=== PATIENT | male | born 1985 | race Two or more races ===

== ENCOUNTER 2024-06-04 10:09 | Outpatient (RCR) | payer BC, SELFPAY ==
[2024-06-03 16:38] LABS: Basophils # (Auto) 0.1 Thou/mm3 (0.0-0.2); Basophils % (Auto) 1 % (0-2.5); Eosinophils # (Auto) 0.1 Thou/mm3 (0.0-0.5); Eosinophils % (Auto) 1 % (0-10); Hematocrit 43.3 % (41.0-53.0); Hemoglobin 14.8 g/dL (13.5-16.0); Immature Granulocytes % (Auto) 0 % (0-0); Immature Granulocytes Auto 0.02 Thou/mm3 (0.00-0.00); Lymphocytes # (Auto) 2.1 Thou/mm3 (1.0-4.8); Lymphocytes % (Auto) 21 % (10-50); Mean Corpuscular HGB Conc 34.2 g/dl (31.0-37.0); Mean Corpuscular Hemoglobin 29.1 pg (25.0-35.0); Mean Corpuscular Volume 85 fL (80-100); Monocytes # (Auto) 0.5 Thou/mm3 (0.0-0.8); Monocytes % (Auto) 5 % (0-12); Neutrophils # (Auto) 7.1 Thou/mm3 (1.8-7.7); Neutrophils % (Auto) 72 % (37-80); Nucleated Red Blood Cell % 0 /100 WBC (0); Platelet Count 244 Thou/mm3 (140-440); RDW Standard Deviation 38.6 fL (35.1-43.9); Red Blood Count 5.08 Miln/mm3 (4.50-5.90); White Blood Count 9.8 Thou/mm3 (3.8-10.6)
[2024-06-03 17:28] LABS: Alanine Aminotransferase 40 U/L (10-49); Albumin, Serum 4.8 gm/dL (3.5-5.0); Albumin/Globulin Ratio 1.9 (1.2-2.2); Alkaline Phosphatase 97 U/L (46-116); Anion Gap 8 (7-16); Aspartate Amino Transferase 18 U/L (0-34); BUN/Creatinine Ratio 13 Ratio (12-20); Bilirubin,Total 0.6 mg/dL (0.3-1.2); Blood Urea Nitrogen 13 mg/dL (9-23); Calcium 9.6 mg/dL (8.3-10.6); Calcium (Corrected) 9.6 mg/dL (8.5-10.1); Chloride 104 mMol/L (98-107); Globulin 2.5 gm/dL (2.3-3.5); Glucose 150 mg/dL (74-106); Osmolality,Calculated 276 (275-295); Potassium 3.8 mMol/L (3.4-5.1); Sodium 137 mMol/L (136-145); Total Protein 7.3 gm/dL (5.7-8.2); eGFR > 60 See Note
== END 2024-06-29 23:59 | disposition home or self-care (01) ==
LOC: SCTC 10:09
PROVIDERS: PCP Family Medicine; Referring Provider Family Medicine; Visit Provider Internal Medicine Hematology & Oncology
DX: Z08 Encounter for follow-up examination after completed treatment for malignant neoplasm (principal); Z85.47 Personal history of malignant neoplasm of testis; Z90.79 Acquired absence of other genital organ(s)
CPT/HCPCS: 36591; 80053; 82105; 85025; 99212; A4216; J1642; G0463

== ENCOUNTER 2024-09-04 15:17 | Outpatient (RCR) | payer BC, SELFPAY | END 2024-09-27 23:59 | disposition home or self-care (01) | LOC: SCTC 15:17 | PROVIDERS: PCP Family Medicine; Referring Provider Family Medicine; Visit Provider Internal Medicine Hematology & Oncology | DX: Z45.2 Encounter for adjustment and management of vascular access device (principal); Z85.47 Personal history of malignant neoplasm of testis | CPT/HCPCS: 96523; A4216; J1642 ==

== ENCOUNTER 2024-12-02 10:26 | Outpatient (RCR) | payer BC, SELFPAY ==
[2024-11-28 16:02] LABS: Basophils # (Auto) 0.1 Thou/mm3 (0.0-0.2); Basophils % (Auto) 1 % (0-2.5); Eosinophils # (Auto) 0.1 Thou/mm3 (0.0-0.5); Eosinophils % (Auto) 1 % (0-10); Hematocrit 44.4 % (41.0-53.0); Hemoglobin 15.4 g/dL (13.5-16.0); Immature Granulocytes % (Auto) 0 % (0-0); Immature Granulocytes Auto 0.03 Thou/mm3 (0.00-0.00); Lymphocytes # (Auto) 2.1 Thou/mm3 (1.0-4.8); Lymphocytes % (Auto) 18 % (10-50); Mean Corpuscular HGB Conc 34.7 g/dl (31.0-37.0); Mean Corpuscular Hemoglobin 29.4 pg (25.0-35.0); Mean Corpuscular Volume 85 fL (80-100); Monocytes # (Auto) 0.5 Thou/mm3 (0.0-0.8); Monocytes % (Auto) 4 % (0-12); Neutrophils # (Auto) 8.6 Thou/mm3 (1.8-7.7); Neutrophils % (Auto) 76 % (37-80); Nucleated Red Blood Cell % 0 /100 WBC (0); Platelet Count 224 Thou/mm3 (140-440); RDW Standard Deviation 38.3 fL (35.1-43.9); Red Blood Count 5.23 Miln/mm3 (4.50-5.90); White Blood Count 11.3 Thou/mm3 (3.8-10.6)
[2024-11-28 17:01] LABS: Alanine Aminotransferase 38 U/L (10-49); Albumin, Serum 4.3 gm/dL (3.5-5.0); Albumin/Globulin Ratio 1.8 (1.2-2.2); Alkaline Phosphatase 101 U/L (46-116); Anion Gap 13 (7-16); Aspartate Amino Transferase 20 U/L (0-34); BUN/Creatinine Ratio 15 Ratio (12-20); Beta HCG,Quantitative < 1 mIU/mL; Bilirubin,Total 0.6 mg/dL (0.3-1.2); Blood Urea Nitrogen 16 mg/dL (9-23); Calcium 8.9 mg/dL (8.3-10.6); Calcium (Corrected) 8.9 mg/dL (8.5-10.1); Carbon Dioxide 22.9 mMol/L (20.0-31.0); Chloride 105 mMol/L (98-107); Creatinine (Component) 1.1 mg/dL (0.6-1.3); Globulin 2.4 gm/dL (2.3-3.5); Glucose 217 mg/dL (74-106); LDH (Lactate Dehydrogenase) 155 U/L (120-246); Osmolality,Calculated 289 (275-295); Potassium 3.5 mMol/L (3.4-5.1); Sodium 141 mMol/L (136-145); Total Protein 6.7 gm/dL (5.7-8.2); eGFR > 60 See Note
--- NOTE | 2024-12-02 15:52 | CTCFLWUP_ITS ---
Patient: MJ JURADO : 1985 Page 2 of 2 FOLLOW UP NOTE DATE OF SERVICE: 12/02/2024 NAME: MJ JURADO ACCOUNT: [id number] : 1985 AGE: 39 INTERVAL HISTORY: Visit summary Mj, a male with right testicular cancer history (diagnosed 2007, recurrence 2019), presented for follow-up. Past treatment included chemotherapy and lymph node removal in 2019. Current labs showed normal tumor markers (AFP beta-hCG and LDH Chief Complaint Follow-up for right testicular cancer History of Present Illness Mj Jurado is a male patient with a history of right testicular cancer, initially diagnosed in 2007 with recurrence in 2019, presenting for follow-up. The patient underwent chemotherapy and lymph node removal for his recurrent cancer in 2019. Mr. Jurado reports no new symptoms or concerns since his last visit. He appears to be adhering to his follow-up schedule, having completed scans in March of the previous year. The patient's overall health status seems stable, with no reported changes in physical, mental, or psychosocial factors. Medical History - Right testicular cancer, recurrence in 2019 - Right testicular cancer, initially diagnosed in 2007 Surgical History - Lymph node removal in 2019 for recurrent testicular cancer Social History - Language: Patient expresses difficulty learning [place] and understanding medical terminology in a non-[place] language Laboratory, Imaging, and Diagnostic Test Results - Date: 12/02/2024 (assumed current date) - Hemoglobin: 15.4 g/dL - White blood cell count: 11.3 (high) - LDH: 155 - Beta-hCG: <1 - AFP: <3.3 - Previous results: - AFP: low (date not specified) - Beta-hCG: <0 (date not specified) ONCOLOGY HISTORY: DIAGNOSIS: 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 Status post 4 cycles of BEP chemotherapy (07/15/2019) open right pelvic lymphadenectomy (10/09/2019). REASON FOR TODAY?S VISIT: This is office follow-up visit. Mr. Jurado is here at [facility]. He is clinically doing very well. Denies any complaints. Denies any cough, chest pain, abdominal pain or leg cramps. Ambulating well. Working full-time. Has good appetite and good energy levels. Patient states that he feels normal. Malignant neoplasm of descended right testis [ICD10] C62.11 DATE OF DIAGNOSIS: STAGE/TNM: TREATMENT HISTORY: Care?Plan Start?Date Cycle Day Intent Bleomycin?30?U,?Etoposide?100?mg/m*2,?CISplatin?20?mg/m*2 05/13/2019 1 21 Curative?(adjuvant) HISTORY OF PRESENT ILLNESS: Mj Bishop is a 39-year-old ENG speaking male with following oncology history. 08/02/2007: Right orchiectomy?embryonal carcinoma limited to the testes and epididymis. No evidence of lymphovascular space involvement by tumor. Intratubular germ cell neoplasia identified. Staged as a PT 1 disease. 05/06/2013: CT scan of the chest abdomen and pelvis with contrast?no mass or pathological lymphadenopathy. Incidental small right paratracheal and inguinal lymph nodes possibly reactive were noted. 07/15/2013: Ultrasound of the testes showed solitary left testicle. Diffuse calcific speckling throughout the testicle and increased blood flow suggest that this is tumor. 03/13/2019: LDH 458 (121?224) beta-hCG less than 1. AFP 12.2 (0?8.3) 03/20/2019: LDH 515, AFP 12.7, beta-hCG less than 2. 04/04/2019: Ultrasound of the testes?In the right scrotal sac, according to the technologists and demonstrated is solid mass 2.2 x 1.5 x 2 cm Left testicle 2.1 x 1.4 x 1.9 cm. Epididymis 7 mm. Left testicular microlithiasis Pedunculated masses anterior to the left testicle 1.0 x 1.0 cm, 0.7 x 0.7 cm 04/11/2019: CT scan of the chest abdomen and pelvis with IV contrast?Large soft tissue tumor mass in the right pelvis, 10.7 x 10.6 x 6.4 cm, most consistent with massive right iliac adenopathy. 04/17/2019: Echocardiogram?CONCLUSIONS Normal left ventricular size. Approximate ejection fraction is 50-55%. mild mitral and trace to mild tricuspid regurgitation noted. Mitral valve thickened 04/18/2019: Pulmonary function tests:Conclusions: Minimal airway obstruction is present. Pulmonary Function Diagnosis: Minimal Obstructive Airways Disease 04/19/2019: CT-guided biopsy of the pelvic mass?pathology showed embryonal carcinoma. Patient also had Chemo-Port insertion. 04/25/2019: Repeat ultrasound of the testes?absent right testicle.Right scrotal wall vascular mass 1.5 x 1.5 cm Left testicular microlithiasis. No testicular mass. Left scrotal wall masses 1.1 x 1.0 cm, 1.1 x 0.6 cm Differential for the scrotal wall masses would include scrotal wall soft tissue tumors, infectious/inflammatory masses 05/13/2019: AFP 33.8, beta-hCG less than 2 05/27/2019: AFP 17.10, beta-hCG less than 2 06/11/2019: AFP 8.30 06/17/2019: AFP 6.4. 06/24/2019: AFP 5.3. 07/10/2019: AFP 8.0. (Normal is less than 8.10) 05/13/2019?07/15/2019: Patient received 4 cycles of BEP chemotherapy. 08/07/2019: AFP 4.5 08/19/2019: CT scan of the chest abdomen and pelvis with IV contrast?IMPRESSION: Significant treatment response compared to PET/CT 04/26/2019, CT chest abdomen pelvis April 11, 2019 Right pelvic lymph node mass measures 7.1 x 4.6 x 6.6 cm on the current study compared to 10.7 x 4 x 10.[address] chest abdomen pelvis 04/11/2019 Recommend repeat PET/CT fusion study follow-up 10/09/2019: Patient had open right pelvic lymphadenectomy at [facility]. Multiple lymph nodes were removed. They were all negative for residual malignancy. 09/18/2019: Beta-hCG less than 2, alpha-fetoprotein 3.4. 11/04/2019: Beta-hCG less than 1, alpha-fetoprotein 4.1. 01/06/2020: Beta-hCG less than 1, alpha-fetoprotein 3.10. 03/06/2020: CT scan of the abdomen and pelvis with IV contrast? 09/08/2020: AFP 5.8, beta-hCG less than 1. 08/04/2022: CT scan of the abdomen and pelvis with IV contrast is negative for metastatic disease. Chest x-ray PA and lateral views did not show any active disease. Beta-hCG less than 1, AFP 5.9. 02/01/2023: CT scan of the abdomen and pelvis with IV contrast 10/06/2023: AFP 3.9, beta-hCG negative. LDH 133. 02/07/2024: AFP 3.0, beta-hCG less than 0. OTHER MEDICAL HISTORY/CONDITIONS: FAMILY HISTORY: SOCIAL HISTORY: MEDICATIONS: 1. atorvastatin - 10 mg 1 tab Daily 2. metformin - 500 mg Twice a Day 3. Ozempic - 1 mg/dose (2 mg/1.5 mL) 1 Weekly 4. Ozempic - 2 mg/dose (8 mg/3 mL) 1 Weekly Medications Last Reconciled by Mirella Mahoney MA on 12/02/2024 ALLERGIES: No Known Drug Allergies REVIEW OF SYSTEMS: A complete 14-point review of systems was performed and is negative except as noted in interval history. PHYSICAL EXAMINATION: VITAL SIGNS: Temperature?98, B/P?147/94, Oxygen?Saturation?98% Weight?212?lbs (Change?since?11/28/24:?0.8?lbs) PAIN: 0 - No pain ECOG Performance Status: 0 - Asymptomatic and fully active GENERAL APPEARANCE: Appears well, in no apparent distress, appropriately interactive. HEENT: Normocephalic, no temporal wasting, normal conjunctiva, no scleral icterus, normal hearing, lips without lesions, neck normal range of motion. CARDIOVASCULAR: Not assessed. PULMONARY: Normal respiratory effort, no respiratory distress or use of accessory muscles, speaking in full sentences, no tachypnea. EXTREMITIES: No pedal edema or cyanosis. SKIN: Normal skin appearance. NEUROLOGIC: Alert and oriented x4. PSHYCHIATRIC: Appropriate affect, mood normal, behavior normal, intact thought and speech. LABORATORY DATA: I have personally reviewed and interpreted each of the patient?s relevant lab tests, abnormal findings are below: Date 06/03/24 11/28/24 ??WHITE?BLOOD?COUNT?(Thou/mm3) 9.8 11.3?H ??RED?BLOOD?COUNT?(Miln/mm3) 5.08 5.23 ??HEMOGLOBIN?(gm/dl) 14.8 15.4 ??HEMATOCRIT?(%) 43.3 44.4 ??PLATELET?COUNT?(Thou/mm3) 244 224 ??NEUTROPHILS?%,?AUTO?(%) 72 76 ??LYMPH?%,?AUTO?(%) 21 18 ??NEUTROPHILS,?AUTO?(Thou/mm3) 7.1 8.6?H ??GLUCOSE,RANDOM?(mg/dL) ? 217?H ??BLOOD?UREA?NITROGEN?(mg/dL) ? 16 ??CREATININE?(mg/dL) ? 1.10 ??SODIUM?(mmol/L) ? 141 ??POTASSIUM?(mmol/L) ? 3.5 ??CHLORIDE?(mmol/L) ? 105 ??CrCl?(CandG)?(ml/min) ? 99.72 ??AST/SGOT?(Unit/L) ? 20 ??ALT/SGPT?(Unit/L) ? 38 ??ALKALINE?PHOSPHATASE?(Unit/L) ? 101 ??BILIRUBIN,?TOTAL?(mg/dL) ? 0.6 ??PROTEIN?TOTAL?(gm/dl) ? 6.7 ??ALBUMIN,?SERUM?(gm/dl) ? 4.3 ??GLOBULIN?(gm/dl) ? 2.4 ??ALBUMIN/GLOBULIN?RATIO ? 1.8 ??CALCIUM,?SERUM?(mg/dL) ? 8.9 ??CALCIUM?SERUM?(CORRECTED)?(mg/dL) ? 8.9 ??LDH,?TOTAL?(Unit/L) ? 155 ASSESSMENT/PLAN: Stage IIc S2 embryonal carcinoma. Status post 4 cycles of BEP chemotherapy. Followed by open right pelvic lymphadenectomy as described above History of embryonal carcinoma of the right testes status post right orchiectomy as described above. Mj Jurado, male patient with a history of right testicular cancer diagnosed in 2008 with recurrence in 2019, presenting for follow-up. Right testicular cancer, status post treatment Assessment: Patient with a history of right testicular cancer initially diagnosed in 2007, with recurrence in 2019. He underwent chemotherapy and lymph node removal for the recurrence. Current laboratory results show normal tumor markers: AFP < 3.3, beta-hCG < 1, and LDH 155. Complete blood count shows slightly elevated WBC at 11.3, but hemoglobin is within normal range at 15.4. Last imaging studies were performed in March 2024, with no mention of concerning findings. Plan: - Order imaging studies for March 2025 - Order laboratory tests (AFP, beta-hCG, LDH) to be completed before the imaging studies in March 2025 - Patient to drink plenty of water before the imaging studies - Follow-up appointment scheduled in 6 months, after completion of imaging and laboratory tests ORDERS: Order # Description [id number] CT Scan + Chest + Abdomen and Pelvis + With Contrast [id number] Comprehensive Metabolic Panel - 12 + CBC with Auto Diff + AFP + bHCG - Quant (TM) + Uric Acid, Serum [id number] Lactate Dehydrogenase (LDH) [id number] CT Scan + Chest + Abdomen and Pelvis + With W/O Contrast [id number] MD Follow Up 6 Month RETURN TO CLINIC: 6 months BILLING AND COMPLIANCE: I reviewed external records from providers outside my specialty as summarized above. I spent a total of 50 minutes on this patient?s care on the day of their visit excluding time spent related to any billed procedures. This time includes time spent with the patient as well as time spent documenting in the medical record, reviewing patients records and tests, obtaining history, placing orders, communicating with other healthcare professionals, counseling the patient, family or caregiver, and/or care coordination for the diagnoses above. Electronically Signed by: Ivan Holloway MD T: 3:49 PM CC: Kala?Anette? PCP: Bernard Leija Referring: Bernard Leija This document was completed utilizing speech recognition software. Grammatical errors, random word insertions, pronoun errors, and incomplete sentences are an occasional consequence of this system due to software limitations, ambient noise, and hardware issues. Any formal questions or concerns about the content, text or information contained within the body of this dictation should be directly addressed to the provider for clarification.
== END 2024-12-28 23:59 | disposition home or self-care (01) ==
LOC: SCTC 10:26
PROVIDERS: PCP Family Medicine; Referring Provider Family Medicine; Visit Provider Internal Medicine Hematology & Oncology
DX: Z08 Encounter for follow-up examination after completed treatment for malignant neoplasm (principal); Z85.47 Personal history of malignant neoplasm of testis; Z90.79 Acquired absence of other genital organ(s); Z92.21 Personal history of antineoplastic chemotherapy
CPT/HCPCS: 36591; 80053; 82105; 83615; 84702; 85025; 99212; A4216; J1642; G0463

== ENCOUNTER → 2025-02-05 | Outpatient (BNVA) | payer BC, SELFPAY | END | disposition home or self-care (01) | PROVIDERS: PCP Family Medicine; Referring Provider Family Medicine; Visit Provider Student in an Organized Health Care Education/Training Program | DX: C62.90 Malignant neoplasm of unspecified testis, unspecified whether descended or undescended (principal); E11.9 Type 2 diabetes mellitus without complications; E29.1 Testicular hypofunction; N52.9 Male erectile dysfunction, unspecified | CPT/HCPCS: 99212; G0463 ==

== ENCOUNTER → 2025-02-24 | Outpatient (CLI) | payer BC, SELFPAY ==
--- NOTE | 2025-02-24 10:30 | XR_ITS ---
Examination: CT chest with intravenous contrast CT abdomen with intravenous contrast CT pelvis with intravenous contrast 2-D coronal and sagittal reconstructions Time of exam: February 24, 2025, 1218 hours COMPARISON: CT abdomen pelvis 04/04/2024, CT abdomen February 01, 2023, PET/CT scan August 30, 2019 CTDI: vol (mGy) : 7.9 DLP: (mGycm): 641 Technique: Multiple axial images of the chest, abdomen and pelvis with intravenous contrast, 3.0 mm slice thickness. Images obtained post intravenous injection Isovue 370 60 cc. 2-D sagittal and coronal reconstructions. Low dose protocols were performed. One or more of the following dose reduction techniques were used; automated exposure control, adjustment of the mA and/or KV according to patient size, use of iterative reconstruction technique. Findings: No thoracic aortic injury to vessel dilatation No pulmonary artery filling defects. No paratracheal tracheobronchial or bronchopulmonary adenopathy. No pneumonia, pulmonary edema, pleural disease or pulmonary nodules No visualized liver or splenic lesion Normal appearing gallbladder No pancreatic or adrenal mass No pathologic lymphadenopathy No hydronephrosis Normal appendix Aorta is not enlarged No pelvic mass is currently visualized No prostatomegaly The osseous structures are intact Moderate osteopenia IMPRESSION: No interval mediastinal lymphadenopathy No pneumonia, pulmonary edema, pleural disease or pulmonary nodules No pathologic lymphadenopathy No interval abdominal or pelvic mass
[2025-02-24 11:09] LABS: Basophils # (Auto) 0.1 Thou/mm3 (0.0-0.2); Basophils % (Auto) 1 % (0-2.5); Eosinophils # (Auto) 0.1 Thou/mm3 (0.0-0.5); Eosinophils % (Auto) 2 % (0-10); Hematocrit 50.9 % (41.0-53.0); Hemoglobin 16.9 g/dL (13.5-16.0); Immature Granulocytes Auto 0.03 Thou/mm3 (0.00-0.00); Lymphocytes # (Auto) 1.7 Thou/mm3 (1.0-4.8); Lymphocytes % (Auto) 21 % (10-50); Mean Corpuscular HGB Conc 33.2 g/dl (31.0-37.0); Mean Corpuscular Hemoglobin 29.3 pg (25.0-35.0); Mean Corpuscular Volume 88 fL (80-100); Monocytes # (Auto) 0.4 Thou/mm3 (0.0-0.8); Monocytes % (Auto) 5 % (0-12); Neutrophils # (Auto) 5.7 Thou/mm3 (1.8-7.7); Neutrophils % (Auto) 71 % (37-80); Nucleated Red Blood Cell # 0.00 Thou/mm3 (0.00-0.00); Nucleated Red Blood Cell % 0 /100 WBC (0); Platelet Count 236 Thou/mm3 (140-440); RDW Standard Deviation 40.5 fL (35.1-43.9); Red Blood Count 5.77 Miln/mm3 (4.50-5.90); White Blood Count 8.1 Thou/mm3 (3.8-10.6)
[2025-02-24 11:42] LABS: Alanine Aminotransferase 41 U/L (10-49); Albumin, Serum 4.6 gm/dL (3.5-5.0); Albumin/Globulin Ratio 1.7 (1.2-2.2); Alkaline Phosphatase 107 U/L (46-116); Anion Gap 9 (7-16); Aspartate Amino Transferase 21 U/L (0-34); BUN/Creatinine Ratio 13 Ratio (12-20); Bilirubin,Total 0.5 mg/dL (0.3-1.2); Blood Urea Nitrogen 13 mg/dL (9-23); Calcium 9.3 mg/dL (8.3-10.6); Calcium (Corrected) 9.3 mg/dL (8.5-10.1); Carbon Dioxide 28.7 mMol/L (20.0-31.0); Chloride 103 mMol/L (98-107); Creatinine (Component) 1.0 mg/dL (0.6-1.3); Globulin 2.7 gm/dL (2.3-3.5); Glucose 150 mg/dL (74-106); LDH (Lactate Dehydrogenase) 131 U/L (120-246); Osmolality,Calculated 284 (275-295); Potassium 4.5 mMol/L (3.4-5.1); Sodium 141 mMol/L (136-145); Total Protein 7.3 gm/dL (5.7-8.2); Uric Acid 3.0 mg/dL (3.7-9.2); eGFR > 60 See Note
[2025-02-24 12:02] LABS: AFP Non-Pregnant 4.30 ng/mL (<8.10)
== END | disposition home or self-care (01) ==
PROVIDERS: PCP Family Medicine; Referring Provider Student in an Organized Health Care Education/Training Program; Visit Provider Internal Medicine Hematology & Oncology
DX: E29.1 Testicular hypofunction (principal); C62.11 Malignant neoplasm of descended right testis
CPT/HCPCS: 36415; 71260; 74177; 80053; 82105; 83002; 83615; 84146; 84403; 84550; 84702; 85025; A4649; Q9967

== ENCOUNTER 2025-03-03 07:58 | Outpatient (RCR) | payer BC, SELFPAY | END 2025-03-30 23:59 | disposition home or self-care (01) | LOC: SCTC 07:58 | PROVIDERS: PCP Family Medicine; Referring Provider Family Medicine; Visit Provider Internal Medicine Hematology & Oncology | DX: Z45.2 Encounter for adjustment and management of vascular access device (principal); Z85.47 Personal history of malignant neoplasm of testis; Z90.79 Acquired absence of other genital organ(s); Z92.21 Personal history of antineoplastic chemotherapy | CPT/HCPCS: 96523; A4216; J1642 ==

== ENCOUNTER → 2025-04-09 | Outpatient (BNVA) | payer BC, SELFPAY | END | disposition home or self-care (01) | PROVIDERS: PCP Family Medicine; Referring Provider Family Medicine; Visit Provider Student in an Organized Health Care Education/Training Program | DX: N52.9 Male erectile dysfunction, unspecified (principal); Z85.47 Personal history of malignant neoplasm of testis; Z92.21 Personal history of antineoplastic chemotherapy; E11.9 Type 2 diabetes mellitus without complications; E78.00 Pure hypercholesterolemia, unspecified; K21.9 Gastro-esophageal reflux disease without esophagitis | CPT/HCPCS: 99212; G0463 ==

== ENCOUNTER 2025-06-04 11:09 | Outpatient (RCR) | payer BC, SELFPAY ==
[2025-06-03 10:05] LABS: Basophils # (Auto) 0.1 Thou/mm3 (0.0-0.2); Basophils % (Auto) 1 % (0-2.5); Eosinophils # (Auto) 0.2 Thou/mm3 (0.0-0.5); Eosinophils % (Auto) 2 % (0-10); Hematocrit 44.3 % (41.0-53.0); Hemoglobin 15.3 g/dL (13.5-16.0); Immature Granulocytes Auto 0.02 Thou/mm3 (0.00-0.00); Lymphocytes # (Auto) 1.8 Thou/mm3 (1.0-4.8); Lymphocytes % (Auto) 25 % (10-50); Mean Corpuscular HGB Conc 34.5 g/dl (31.0-37.0); Mean Corpuscular Hemoglobin 30.0 pg (25.0-35.0); Mean Corpuscular Volume 87 fL (80-100); Monocytes # (Auto) 0.4 Thou/mm3 (0.0-0.8); Monocytes % (Auto) 6 % (0-12); Neutrophils # (Auto) 4.8 Thou/mm3 (1.8-7.7); Neutrophils % (Auto) 66 % (37-80); Nucleated Red Blood Cell # 0.00 Thou/mm3 (0.00-0.00); Nucleated Red Blood Cell % 0 /100 WBC (0); Platelet Count 224 Thou/mm3 (140-440); RDW Standard Deviation 39.8 fL (35.1-43.9); Red Blood Count 5.10 Miln/mm3 (4.50-5.90); White Blood Count 7.3 Thou/mm3 (3.8-10.6)
[2025-06-03 10:23] LABS: AFP Non-Pregnant 3.60 ng/mL (<8.10)
[2025-06-03 11:14] LABS: Alanine Aminotransferase 33 U/L (10-49); Albumin, Serum 4.5 gm/dL (3.5-5.0); Albumin/Globulin Ratio 2.0 (1.2-2.2); Alkaline Phosphatase 82 U/L (46-116); Anion Gap 10 (7-16); Aspartate Amino Transferase 21 U/L (0-34); BUN/Creatinine Ratio 12 Ratio (12-20); Bilirubin,Total 0.7 mg/dL (0.3-1.2); Blood Urea Nitrogen 11 mg/dL (9-23); Calcium 9.3 mg/dL (8.3-10.6); Calcium (Corrected) 9.3 mg/dL (8.5-10.1); Carbon Dioxide 25.0 mMol/L (20.0-31.0); Chloride 106 mMol/L (98-107); Creatinine (Component) 0.9 mg/dL (0.6-1.3); Globulin 2.3 gm/dL (2.3-3.5); Glucose 135 mg/dL (74-106); Osmolality,Calculated 282 (275-295); Potassium 3.8 mMol/L (3.4-5.1); Sodium 141 mMol/L (136-145); Total Protein 6.8 gm/dL (5.7-8.2); Uric Acid 3.7 mg/dL (3.7-9.2); eGFR > 60 See Note
[2025-06-03 12:35] LABS: LDH (Lactate Dehydrogenase) 153 U/L (120-246)
--- NOTE | 2025-06-04 12:27 | CTCFLWUP_ITS ---
Patient: MJ JURADO : 1985 Page 4 of 6 FOLLOW UP NOTE DATE OF SERVICE: 06/04/2025 NAME: MJ JURADO ACCOUNT: [id number] : 1985 AGE: 39 INTERVAL HISTORY: Visit summary Mj, a male with right testicular cancer history (diagnosed 2007, recurrence 2018), presented for follow-up. Past treatment included chemotherapy and lymph node removal in 2019. Current labs showed normal tumor markers (AFP beta-hCG and LDH. Patient had a CT scan done in January 2025 and is negative for any cancer. Patient requested to get his port removed. Refer to interventional radiology for port catheter removal. Chief Complaint Follow-up for right testicular cancer History of Present Illness Mj Jurado is a male patient with a history of right testicular cancer, initially diagnosed in 2007 with recurrence in 2019, presenting for follow-up. The patient underwent chemotherapy and lymph node removal for his recurrent cancer in 2019. Mr. Jurado reports no new symptoms or concerns since his last visit. He appears to be adhering to his follow-up schedule, having completed scans in March of the previous year. The patient's overall health status seems stable, with no reported changes in physical, mental, or psychosocial factors. Medical History - Right testicular cancer, recurrence in 2019 - Right testicular cancer, initially diagnosed in 2007 Surgical History - Lymph node removal in 2019 for recurrent testicular cancer Social History - Language: Patient expresses difficulty learning [place] and understanding medical terminology in a non-[place] language Laboratory, Imaging, and Diagnostic Test Results - Date: 12/02/2024 (assumed current date) - Hemoglobin: 15.4 g/dL - White blood cell count: 11.3 (high) - LDH: 155 - Beta-hCG: <1 - AFP: <3.3 - Previous results: - AFP: low (date not specified) - Beta-hCG: <0 (date not specified) ONCOLOGY HISTORY: DIAGNOSIS: 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 Status post 4 cycles of BEP chemotherapy (07/15/2019) open right pelvic lymphadenectomy (10/09/2019). REASON FOR TODAY?S VISIT: This is office follow-up visit. Mr. Jurado is here at [facility]. He is clinically doing very well. Denies any complaints. Denies any cough, chest pain, abdominal pain or leg cramps. Ambulating well. Working full-time. Has good appetite and good energy levels. Patient states that he feels normal. Malignant neoplasm of descended right testis [ICD10] C62.11 DATE OF DIAGNOSIS: STAGE/TNM: TREATMENT HISTORY: Care?Plan Start?Date Cycle Day Intent Bleomycin?30?U,?Etoposide?100?mg/m*2,?CISplatin?20?mg/m*2 05/13/2019 1 Curative?(adjuvant) HISTORY OF PRESENT ILLNESS: Mj Bishop is a 39-year-old ENG speaking male with following oncology history. 08/02/2007: Right orchiectomy?embryonal carcinoma limited to the testes and epididymis. No evidence of lymphovascular space involvement by tumor. Intratubular germ cell neoplasia identified. Staged as a PT 1 disease. 05/06/2013: CT scan of the chest abdomen and pelvis with contrast?no mass or pathological lymphadenopathy. Incidental small right paratracheal and inguinal lymph nodes possibly reactive were noted. 07/15/2013: Ultrasound of the testes showed solitary left testicle. Diffuse calcific speckling throughout the testicle and increased blood flow suggest that this is tumor. 03/13/2019: LDH 458 (121?224) beta-hCG less than 1. AFP 12.2 (0?8.3) 03/20/2019: LDH 515, AFP 12.7, beta-hCG less than 2. 04/04/2019: Ultrasound of the testes?In the right scrotal sac, according to the technologists and demonstrated is solid mass 2.2 x 1.5 x 2 cm Left testicle 2.1 x 1.4 x 1.9 cm. Epididymis 7 mm. Left testicular microlithiasis Pedunculated masses anterior to the left testicle 1.0 x 1.0 cm, 0.7 x 0.7 cm 04/11/2019: CT scan of the chest abdomen and pelvis with IV contrast?Large soft tissue tumor mass in the right pelvis, 10.7 x 10.6 x 6.4 cm, most consistent with massive right iliac adenopathy. 04/17/2019: Echocardiogram?CONCLUSIONS Normal left ventricular size. Approximate ejection fraction is 50-55%. mild mitral and trace to mild tricuspid regurgitation noted. Mitral valve thickened 04/18/2019: Pulmonary function tests:Conclusions: Minimal airway obstruction is present. Pulmonary Function Diagnosis: Minimal Obstructive Airways Disease 04/19/2019: CT-guided biopsy of the pelvic mass?pathology showed embryonal carcinoma. Patient also had Chemo-Port insertion. 04/25/2019: Repeat ultrasound of the testes?absent right testicle.Right scrotal wall vascular mass 1.5 x 1.5 cm Left testicular microlithiasis. No testicular mass. Left scrotal wall masses 1.1 x 1.0 cm, 1.1 x 0.6 cm Differential for the scrotal wall masses would include scrotal wall soft tissue tumors, infectious/inflammatory masses 05/13/2019: AFP 33.8, beta-hCG less than 2 05/27/2019: AFP 17.10, beta-hCG less than 2 06/11/2019: AFP 8.30 06/17/2019: AFP 6.4. 06/24/2019: AFP 5.3. 07/10/2019: AFP 8.0. (Normal is less than 8.10) 05/13/2019?07/15/2019: Patient received 4 cycles of BEP chemotherapy. 08/07/2019: AFP 4.5 08/19/2019: CT scan of the chest abdomen and pelvis with IV contrast?IMPRESSION: Significant treatment response compared to PET/CT 04/26/2019, CT chest abdomen pelvis April 11, 2019 Right pelvic lymph node mass measures 7.1 x 4.6 x 6.6 cm on the current study compared to 10.7 x 4 x 10.[address] chest abdomen pelvis 04/11/2019 Recommend repeat PET/CT fusion study follow-up 10/09/2019: Patient had open right pelvic lymphadenectomy at [place]. Multiple lymph nodes were removed. They were all negative for residual malignancy. 09/18/2019: Beta-hCG less than 2, alpha-fetoprotein 3.4. 11/04/2019: Beta-hCG less than 1, alpha-fetoprotein 4.1. 01/06/2020: Beta-hCG less than 1, alpha-fetoprotein 3.10. 03/06/2020: CT scan of the abdomen and pelvis with IV contrast? 09/08/2020: AFP 5.8, beta-hCG less than 1. 08/04/2022: CT scan of the abdomen and pelvis with IV contrast is negative for metastatic disease. Chest x-ray PA and lateral views did not show any active disease. Beta-hCG less than 1, AFP 5.9. 02/01/2023: CT scan of the abdomen and pelvis with IV contrast 10/06/2023: AFP 3.9, beta-hCG negative. LDH 133. 02/07/2024: AFP 3.0, beta-hCG less than 0. OTHER MEDICAL HISTORY/CONDITIONS: FAMILY HISTORY: SOCIAL HISTORY: MEDICATIONS: 1. atorvastatin - 10 mg 1 tab Daily 2. metformin - 500 mg Twice a Day 3. Ozempic - 1 mg/dose (2 mg/1.5 mL) 1 Weekly 4. Ozempic - 2 mg/dose (8 mg/3 mL) 1 Weekly Medications Last Reconciled by Mirella Ramos MD on 06/04/2025 ALLERGIES: No Known Drug Allergies REVIEW OF SYSTEMS: A complete 14-point review of systems was performed and is negative except as noted in interval history. PHYSICAL EXAMINATION: VITAL SIGNS: Temperature?98.5, B/P?156/104, Oxygen?Saturation?96% Weight?200?lbs (Change?since?06/03/25:?-8.8?lbs) PAIN: 0 - No pain ECOG Performance Status: 0 - Asymptomatic and fully active GENERAL APPEARANCE: Appears well, in no apparent distress, appropriately interactive. HEENT: Normocephalic, no temporal wasting, normal conjunctiva, no scleral icterus, normal hearing, lips without lesions, neck normal range of motion. CARDIOVASCULAR: Not assessed. PULMONARY: Normal respiratory effort, no respiratory distress or use of accessory muscles, speaking in full sentences, no tachypnea. EXTREMITIES: No pedal edema or cyanosis. SKIN: Normal skin appearance. NEUROLOGIC: Alert and oriented x4. PSHYCHIATRIC: Appropriate affect, mood normal, behavior normal, intact thought and speech. LABORATORY DATA: I have personally reviewed and interpreted each of the patient?s relevant lab tests, abnormal findings are below: Date 02/24/25 06/03/25 ??WHITE?BLOOD?COUNT?(Thou/mm3) ? 7.3 ??RED?BLOOD?COUNT?(Miln/mm3) ? 5.10 ??HEMOGLOBIN?(gm/dl) ? 15.3 ??HEMATOCRIT?(%) ? 44.3 ??PLATELET?COUNT?(Thou/mm3) ? 224 ??NEUTROPHILS?%,?AUTO?(%) ? 66 ??LYMPH?%,?AUTO?(%) ? 25 ??NEUTROPHILS,?AUTO?(Thou/mm3) ? 4.8 ??GLUCOSE,RANDOM?(mg/dL) 150?H 135?H ??BLOOD?UREA?NITROGEN?(mg/dL) 13 11 ??CREATININE?(mg/dL) 1.00 0.90 ??SODIUM?(mmol/L) 141 141 ??POTASSIUM?(mmol/L) 4.5 3.8 ??CHLORIDE?(mmol/L) 103 106 ??CrCl?(CandG)?(ml/min) 109.89 121.22 ??AST/SGOT?(Unit/L) 21 21 ??ALT/SGPT?(Unit/L) 41 33 ??ALKALINE?PHOSPHATASE?(Unit/L) 107 82 ??BILIRUBIN,?TOTAL?(mg/dL) 0.5 0.7 ??PROTEIN?TOTAL?(gm/dl) 7.3 6.8 ??ALBUMIN,?SERUM?(gm/dl) 4.6 4.5 ??GLOBULIN?(gm/dl) 2.7 2.3 ??ALBUMIN/GLOBULIN?RATIO 1.7 2.0 ??CALCIUM,?SERUM?(mg/dL) 9.3 9.3 ??CALCIUM?SERUM?(CORRECTED)?(mg/dL) 9.3 9.3 ??LDH,?TOTAL?(Unit/L) ? 153 ASSESSMENT/PLAN: Stage IIc S2 embryonal carcinoma. Status post 4 cycles of BEP chemotherapy. Followed by open right pelvic lymphadenectomy as described above History of embryonal carcinoma of the right testes status post right orchiectomy as described above. Mj Jurado, male patient with a history of right testicular cancer diagnosed in 2007 with recurrence in 2019, presenting for follow-up. Right testicular cancer, status post treatment Assessment: Patient with a history of right testicular cancer initially diagnosed in 2007, with recurrence in 2019. He underwent chemotherapy and lymph node removal for the recurrence. Current laboratory results show normal tumor markers: AFP < 3.3, beta-hCG < 1, and LDH 155. Complete blood count shows slightly elevated WBC at 11.3, but hemoglobin is within normal range at 15.4. Last imaging studies were performed in March 2024, with no mention of concerning findings. Imaging reviewed and is negative - Order laboratory tests (AFP, beta-hCG, LDH) to be completed every 3 to 6 months -RTC in 6 months with blood work ORDERS: Order # Description [id number] Comprehensive Metabolic Panel - 12 + CBC with Auto Diff + AFP + bHCG - Quant (TM) + Uric Acid, Serum [id number] Lactate Dehydrogenase (LDH) [id number] bHCG - Quant (TM) [id number] Follow Up 6 Month RETURN TO CLINIC: I reviewed the diagnosis, prognosis, and recommended treatment/procedure options with the patient (and/or their legal sales representative graphic art), including the potential benefits, risks, side effects and alternative therapies. We also discussed the option of no treatment and the possibility of clinical trial participation, if applicable. All questions were addressed, and they demonstrated understanding. They provided informed consent to proceed with the proposed plan of care. BILLING AND COMPLIANCE: I reviewed external records from providers outside my specialty as summarized above. I spent a total of 50 minutes on this patient?s care on the day of their visit excluding time spent related to any billed procedures. This time includes time spent with the patient as well as time spent documenting in the medical record, reviewing patients records and tests, obtaining history, placing orders, communicating with other healthcare professionals, counseling the patient, family or caregiver, and/or care coordination for the diagnoses above. Electronically Signed by: Ivan Holloway MD T: 12:25 PM CC: Kala?Anette,? PCP: Bernard Leija Referring: Bernard Leija This document was completed utilizing speech recognition software. Grammatical errors, random word insertions, pronoun errors, and incomplete sentences are an occasional consequence of this system due to software limitations, ambient noise, and hardware issues. Any formal questions or concerns about the content, text or information contained within the body of this dictation should be directly addressed to the provider for clarification.
[2025-06-06 14:20] LABS: HCG Total,Male (Tumor Marker)* <5 mIU/mL (<5)
== END 2025-06-29 23:59 | disposition home or self-care (01) ==
LOC: SCTC 11:09
PROVIDERS: PCP Family Medicine; Referring Provider Family Medicine; Visit Provider Internal Medicine Hematology & Oncology
DX: Z08 Encounter for follow-up examination after completed treatment for malignant neoplasm (principal); Z85.47 Personal history of malignant neoplasm of testis; Z90.79 Acquired absence of other genital organ(s); Z92.21 Personal history of antineoplastic chemotherapy
CPT/HCPCS: 36591; 80053; 82105; 83615; 84550; 84702; 85025; 99212; A4216; J1642; G0463